=== PATIENT | female | born 1955 | race Caucasian/White ===

== ENCOUNTER 2017-09-16 09:47 | Outpatient (CLI) | payer OTHER | END 2017-09-16 10:00 | disposition home or self-care (01) | LOC: NUCLEAR 09:47 | DX: C54.1 Malignant neoplasm of endometrium (principal) | CPT/HCPCS: 78816; A9552 ==

== ENCOUNTER 2018-10-02 08:12 | Outpatient (CLI) | payer OTHER | END 2018-10-02 09:00 | disposition home or self-care (01) | LOC: NUCLEAR 08:12 | DX: C54.1 Malignant neoplasm of endometrium (principal); Z08 Encounter for follow-up examination after completed treatment for malignant neoplasm | CPT/HCPCS: 78816; A9552 ==